=== PATIENT | female | born 1955 | race Caucasian/White ===

== ENCOUNTER 2022-06-17 17:19 | Emergency (ER) | payer OTHER, SELFPAY ==
--- NOTE | ~2022-06-17 | XR_ITS ---
EXAM: XR knee LT 3V DATE: 06/17/2022 17:56 HISTORY: Patient fell today. Pain to rt knee. HX knee replacement . COMPARISON: None available. FINDINGS: Decreased. Uncomplicated appearing right total knee arthroplasty mineralization. No fractu re or dislocation. No lytic or blastic lesion. Joint spaces are maintained. No erosion or periosteal change. Soft tissues within normal limits. IMPRESSION: No acute osseous finding in the right knee. No radiographic evidence of hardware related complication. Reviewed, dictated and finalized at location K. IMPRESSION: No acute osseous finding in the right knee. No radiographic evidenc e of hardware related complication.
--- NOTE | ~2022-06-17 | XR_ITS ---
EXAM: XR shoulder RT min 2V DATE: 06/17/2022 17:56 HISTORY: Fell today. Pain to right shoulder. . COMPARISON: None available. FINDINGS: Normal mineralization. No fracture or dislocation. No lytic or blastic lesion. Mild-modera te degenerative changes. No erosion or periosteal change. Soft tissues within normal limits. IMPRESSION: No acute osseous finding in the right shoulder. Reviewed, dictated and finalized at location K.
--- NOTE | 2022-06-17 17:25 | ED.LOWEXIN ---
HPI - Extremity Injury (Lower) General Chief Complaint: Extremity Injury, Lower Stated Complaint: Fall Injury/Right Knee Time Seen by Provider: 06/17/22 17:25 Source: patient and RN notes reviewed History of Present Illness HPI Narrative: Patient is 66-year-old female who presents to urgent care with complaints of right knee pain and right shoulder pain due to fall. Patient states that a couple hours ago after picking her grandson up from school she tripped over a curb and fell onto her right side. Patient also has some abrasions to the chin and nose. 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 Patient states she did not lose consciousness. Patient has taken Tylenol and use ice for the pain and discomfort. No other acute complaints. No acute distress noted. Patient aware of the plan of care. Some parts of this dictation were generated by voice recognition software and may contain typographical and/or grammatical inaccuracies. Related Data Home Medications Medication Instructions Recorded Confirmed cyanocobalamin (vitamin B-12) 1,000 mcg subcut WEEKLY 06/17/22 06/17/22 1,000 mcg/mL injection solution gabapentin 300 mg capsule 300 mg PO TID 06/17/22 06/17/22 levothyroxine 50 mcg tablet 50 mcg PO DAILY 06/17/22 06/17/22 meloxicam 15 mg tablet 15 mg PO DAILY 06/17/22 06/17/22 semaglutide 1 mg/dose (4 mg/3 mL) 1 mg subcut WEEKLY 06/17/22 06/17/22 subcutaneous pen injector (Ozempic) Allergies Allergy/AdvReac Type Severity Reaction Status Date / Time No Known Allergies Allergy Verified 06/17/22 17:43 Review of Systems Review of Systems: CONSTITUTIONAL: Denies fever, chills, or sweats. EYES: Denies visual changes, redness, or discharge. ENT: Denies rhinorrhea, congestion, sore throat, or otalgia. CARDIOVASCULAR: Denies chest pain, palpitations, or edema. RESPIRATORY: Denies cough or dyspnea. GASTROINTESTINAL: Denies abdominal pain, nausea, vomiting, or diarrhea. GENITOURINARY: Denies dysuria or hematuria. SKIN: Reports of facial abrasions and abrasions to the right knee MUSCULOSKELETAL: Reports of right shoulder and right knee pain NEUROLOGIC: Denies headache, numbness, or weakness. All other systems reviewed are negative, except as documented in HPI. PMFSH Comments At the time of my signature, I reviewed and agree with the nursing past medical, surgical, social, and family history. There is no relevant family history pertinent to the patient complaint. Exam Narrative: GENERAL: This is a well-nourished, well-developed patient, in no apparent distress. HEAD: normocephalic, atraumatic. EYES: PERRL. Sclera clear/white. Vision is grossly intact. EARS: External ears normal NOSE: External nose normal with no obvious nasal discharge, nares without redness, no rhinorrhea. THROAT: Mucous membranes moist NECK: Neck supple SKIN: Superficial abrasion to the chin, superficial abrasion to the tip of the nose, superficial abrasions to the anterior aspect of the right knee NEURO: awake, alert, and oriented to person, place and time. There were no obvious focal neurologic abnormalities. EXTREMITIES: Range of motion right upper extremity within normal limits with mild exacerbated pain on reach to the right shoulder. [id number] anterior joint tenderness to the right shoulder on palpation. Positive strong right radial pulse with capillary refill less than 2 seconds. Range of motion right lower extremity within normal limits with mild anterior patellar edema. Positive strong right pedal pulse with capillary refill less than 2 seconds. Course Course Level of Care: Express Care Visit Vital Signs Vital signs: Vital Signs Temperature 98 F 06/17/22 17:32 Pulse Rate 64 06/17/22 17:32 Respiratory Rate 16 06/17/22 17:32 Blood Pressure 146/83 H 06/17/22 17:32 Pulse Oximetry 100 06/17/22 17:32 Oxygen Delivery Room Air 06/17/22 17:32 Temperature 98 F 06/17/22 17:32 Pulse Rate 64 04
[2022-06-17 17:32] VITALS: BP 146/83; PULSE 64; RESP 16; TEMP 36.6; O2SAT 100
== END 2022-06-17 18:10 | disposition home or self-care (01) ==
PROVIDERS: Emergency Provider Nurse Practitioner Family
DX: M25.561 Pain in right knee (principal); M25.511 Pain in right shoulder; W10.1XXA Fall (on)(from) sidewalk curb, initial encounter; M06.9 Rheumatoid arthritis, unspecified; M79.7 Fibromyalgia; Z96.651 Presence of right artificial knee joint; M45.9 Ankylosing spondylitis of unspecified sites in spine; E11.9 Type 2 diabetes mellitus without complications
CPT/HCPCS: 73030; 73562; 99214; G0463